=== PATIENT | male | born 1980 | race Caucasian/White ===

== ENCOUNTER 2024-09-30 00:24 | Emergency (ER) | payer MEDICAID ==
[~2024-09-30] VITALS: Ht 165.1 cm; Wt 78.0 kg
[2024-09-30 00:27] VITALS: O2SAT 100
[2024-09-30 00:31] VITALS: O2SAT 100
[2024-09-30 01:30] VITALS: BP 130/65; PULSE 68; RESP 18; TEMP 36.66960
== END 2024-09-30 00:40 | disposition home or self-care (01) ==
LOC: ER 00:24
DX: Z00.00 Encounter for general adult medical examination without abnormal findings (principal)
CPT/HCPCS: 99281